=== PATIENT | male | born 1990 | race Caucasian/White ===

== ENCOUNTER 2017-06-18 01:53 | Emergency (ER) | payer OTHER ==
[2017-06-18 02:01] VITALS: TEMP 98.2
--- NOTE | 2017-06-18 02:25 | EDPHY ---
H & P Stated Complaint: r knee lac HPI/ROS: HPI CHIEF COMPLAINT: Right knee vertical laceration. 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 Presents emergency room with a less than 1 cm vertically oriented right anterior knee laceration. Patient reports that he noticed some broken glass that may have been blood tubes on the outside of of a building. He bent down to scrap picker the tubes and when he bent down his any went into some broken glass. He sustained a minimal laceration through his pants. The laceration does not need to be repaired. His tetanus shot is not up-to-date. He is concerned about blood exposure. He is unsure if the glass was soaked in blood. Past Medical History: No significant medical history Past Surgical History: No significant surgical history Social History: Denies daily use drugs alcohol tobacco products. [place] [employer] officer. Family History: Noncontributory ROS REVIEW OF SYSTEMS: A comprehensive 10 point review of systems is otherwise negative aside from elements mentioned in the history of present illness. Exam Constitutional triage nursing summary reviewed, vital signs reviewed, awake/ alert. Eyes normal conjunctivae and sclera, EOMI, PERRLA. HENT normal inspection, atraumatic, moist mucus membranes, no epistaxis, neck supple/ no meningismus, no raccoon eyes. Respiratory clear to auscultation bilaterally, normal breath sounds, no respiratory distress, no wheezing. Cardiovascular rate normal, regular rhythm, no murmur, no edema, distal pulses normal. Gastrointestinal soft, non-tender, no rebound, no guarding, normal bowel sounds, no distension, no pulsatile mass. Genitourinary no CVA tenderness. Musculoskeletal no midline vertebral tenderness, full range of motion, no calf swelling, no tenderness of extremities, no meningismus, good pulses, neurovascularly intact. Skin right knee very small 0.5 cm to 1 cm non gaping superficial laceration. No significant tenderness. Full range of motion knee. No visible foreign bodies externally. pink, warm, & dry, no rash, skin atraumatic. Neurologic awake, alert and oriented x 3, AAOx3, moves all 4 extremities equally, motor intact, sensory intact, CN II-XII intact, normal cerebellar, normal vision, normal speech. Psychiatric normal mood/affect. Heme/Lymph/Immune no lymphadenopathy. Differential Diagnosis: Soft tissue injury, superficial knee laceration, blood borne exposure. Medical Decision Making: Plan for this patient update his tetanus shot. He has declined x-ray of his knee, clean his wound copiously. Additionally will touch base with Infectious Disease. Re-evaluation: 0238: This patient's wound will be copiously irrigated. Tetanus shot will be updated. I did speak with Infectious Disease Dr. Bonny Ramirez. She does not recommend HIV prophylaxis exposure. Very low risk of transmission of at all. Recommends following up with his occupational physician. To get baseline labs. Does not want us to draw hepatitis or HIV labs. The patient should follow up with his employer's occupational physician for blood draw. Does not recommend HIV prophylaxis. Low risk transmission. I did update this patient about what he needs to do neck is. We have cleaned copiously his wound. We have updated his tetanus. He understands follow-up with his employer occupational health physician. I will also give him a referral to [facility] clinic in case he gets lost to follow-up. Additionally this laceration too small to repair does not require sutures. Source: Patient - Personal History Current Tetanus/Diphtheria Vaccine: No - Medical/Surgical History Hx Asthma: No Hx Chronic Respiratory Disease: No Hx Diabetes: No Hx Cardiac Disease: Yes Hx Renal Disease: No Hx Cirrhosis: No Hx Alcoholism: No Hx HIV/AIDS: No Hx Splenectomy or Spleen Trauma: No Other PMH: PSHx: L shoulder, hernia repair, appy. PMHx: heart murmur - Social History Smoking Status: Never smoked Constitutional: Initial Vital Signs Temperature (C) 36.8 C 06/18/17 01:57 Heart Rate 58 L 06/18/17 01:57 Respiratory Rate 16 06/18/17 01:57 Blood Pressure 147/79 H 06/18/17 01:57 O2 Sat (%) 96 06/18/17 01:57 O2 Delivery Mode Room Air Allergies/Adverse Reactions: No Known Allergies Allergy (Unverified 06/18/17 01:57) Home Medications: Medication Instructions Recorded NK [No Known Home Meds] 06/18/17 Departure - Departure Disposition: Home, Routine, Self-Care Clinical Impression: Laceration, Superficial laceration Condition: Good Instructions: Laceration (ED) Additional Instructions: 1. Return emergency room if you have any worsening symptoms questions or concerns. 2. Your tetanus shot has been updated here in the emergency room. 3. Please follow up with your physician they are employer used for baseline labs. Referrals: NONE *PRIMARY CARE P,. [Primary Care Provider] - As per Instructions [facility] (ED,. [Edm Groups for Call Sched] - As per Instructions
[2017-06-18] MEDS ORDERED: TDAP ADULT 0.5 ML INJ (BOOSTRIX) IM ONE (02:34)
[2017-06-18 02:57] VITALS: BP 138/75; PULSE 78; RESP 15; O2SAT 99
== END 2017-06-18 02:59 | disposition home or self-care (01) ==
DX: S81.011A Laceration without foreign body, right knee, initial encounter (principal); Z23 Encounter for immunization; W25.XXXA Contact with sharp glass, initial encounter